=== PATIENT | female | born 1980 | race Caucasian/White ===

== ENCOUNTER 2021-08-11 13:20 | Inpatient (IN) | payer MEDICAID, SELFPAY ==
[~2021-08-11] VITALS: Ht 160 cm; Wt 76.7 kg
[2021-08-11] MEDS ORDERED: PNV91TAB8 PO (14:03)
[2021-08-11 14:52] LABS: BASOPHILS % (AUTO) 0.5 % (0.0-2.0); EOSINOPHILS # (AUTO) 0.2 K/uL (0-0.4); EOSINOPHILS % (AUTO) 1.7 % (0.0-4.0); HEMATOCRIT 33.8 % (36-48); HEMOGLOBIN 11.6 g/dL (12.0-16.0); LYMPHOCYTES # (AUTO) 1.4 K/uL (2.5-16.5); LYMPHOCYTES % (AUTO) 13.1 % (20.5-51.1); MEAN CORPUSCULAR HEMOGLOBIN 31 pg (27-31); MEAN CORPUSCULAR HGB CONC 34 g/dL (33-37); MEAN CORPUSCULAR VOLUME 91.2 fL (80-94); MONOCYTES # (AUTO) 0.6 K/uL (0.8-1.0); MONOCYTES % (AUTO) 5.4 % (1.7-9.3); NEUTROPHILS # (AUTO) 8.2 K/uL (1.8-7.7); NEUTROPHILS % (AUTO) 79.3 % (42.2-75.2); PLATELET COUNT (AUTO) 190 K/uL (140-450); RED BLOOD CELL COUNT(AUTO) 3.71 MIL/uL (4.20-5.40); RED CELL DISTRIBUTION WIDTH 13.5 % (11.6-13.7); WHITE BLOOD COUNT (AUTO) 10.3 K/uL (4.8-10.8)
[2021-08-11] MEDS: LACTATED RINGERS 1,000 ML IV SCH ×3 (15:00→17:46)
[2021-08-11 15:04] LABS: APPEARANCE,URINE CLEAR (CLEAR); BILIRUBIN,URINE NEGATIVE (NEGATIVE); BLOOD, URINE NEGATIVE (NEGATIVE); COLOR,URINE YELLOW (YELLOW); LEUKOCYTE ESTERASE ,URINE NEGATIVE (NEGATIVE); NITRITE, URINE NEGATIVE (NEGATIVE); PH,URINE 6.5 (5.0-9.0); UGLUCOSE NEGATIVE (NEGATIVE)
[2021-08-11 15:12] LABS: ALBUMIN 2.8 g/dL (3.4-5.0); ANION GAP 13.6 (8-16); CARBON DIOXIDE 25.3 mmol/L (21-32); CREATININE 0.4 mg/dL (0.6-1.3); TOTAL BILIRUBIN 0.8 mg/dL (0.0-1.0)
[2021-08-11 15:15] LABS: POTASSIUM 2.9 mmol/L (3.5-5.1)
[2021-08-11 16:29] VITALS: BP 146/69
[2021-08-11] MEDS ORDERED: KCL 20 MEQ/WATER INJ PREMIX 200 ML IV ONE (17:05)
[2021-08-12 01:04] LABS: ALBUMIN 2.7 g/dL (3.4-5.0); ANION GAP 14.7 (8-16); CARBON DIOXIDE 24.5 mmol/L (21-32); CREATININE 0.4 mg/dL (0.6-1.3); POTASSIUM 3.2 mmol/L (3.5-5.1); TOTAL BILIRUBIN 0.9 mg/dL (0.0-1.0)
[2021-08-12] MEDS: LACTATED RINGERS 1,000 ML IV SCH ×3 (04:11→14:58)
[2021-08-12] MEDS ORDERED: KCL 20 MEQ/WATER INJ PREMIX 100 ML IV SCH (07:00)
--- NOTE | 2021-08-12 08:22 | NUR ---
PATIENT HAS BEEN SCREENED AND CATEGORIZED LOW NUTRITION RISK. PATIENT WILL BE SEEN WITHIN 7 DAYS OF ADMISSION. 08/18/[address]
[2021-08-12] MEDS ORDERED: MORPHINE PRES FREE 10 MG/10 ML AMP IV ONE (13:09)
[2021-08-12] MEDS ORDERED: METOCLOPRAMIDE 10 MG/2 ML INJ VIAL ONE (13:15)
[2021-08-12] MEDS ORDERED: ONDANSETRON 4 MG/2 ML VIAL ONE (13:15)
[2021-08-12] MEDS ORDERED: DEXAMETHASONE 4 MG/ML VIAL ONE (13:15)
[2021-08-12] MEDS ORDERED: METHYLERGONOVINE 0.2 MG/ML AMP ONE (13:32)
[2021-08-12] MEDS ORDERED: ONDANSETRON 4 MG/2 ML VIAL IVP PRN (18:20)
[2021-08-12] MEDS ORDERED: NALOXONE 0.4 MG/ML VIAL IVP PRN (18:20)
[2021-08-13] MEDS: LACTATED RINGERS 1,000 ML IV SCH (00:44)
[2021-08-13 08:26] LABS: BASOPHILS % (AUTO) 0.1 % (0.0-2.0); HEMATOCRIT 32.4 % (36-48); HEMOGLOBIN 11.1 g/dL (12.0-16.0); LYMPHOCYTES # (AUTO) 0.9 K/uL (2.5-16.5); LYMPHOCYTES % (AUTO) 5.5 % (20.5-51.1); MEAN CORPUSCULAR HEMOGLOBIN 31 pg (27-31); MEAN CORPUSCULAR HGB CONC 34 g/dL (33-37); MEAN CORPUSCULAR VOLUME 91.4 fL (80-94); MONOCYTES # (AUTO) 0.7 K/uL (0.8-1.0); MONOCYTES % (AUTO) 4.2 % (1.7-9.3); NEUTROPHILS # (AUTO) 15.3 K/uL (1.8-7.7); NEUTROPHILS % (AUTO) 90.2 % (42.2-75.2); PLATELET COUNT (AUTO) 187 K/uL (140-450); RED BLOOD CELL COUNT(AUTO) 3.55 MIL/uL (4.20-5.40); RED CELL DISTRIBUTION WIDTH 13.5 % (11.6-13.7); WHITE BLOOD COUNT (AUTO) 16.9 K/uL (4.8-10.8)
[2021-08-13] MEDS ORDERED: OXYTOCIN 20 UNITS/LR PREMIX 0 ML IV ONE (09:07)
[2021-08-13] MEDS ORDERED: oxyCODONE/APAP 5/325 MG 1 TAB TAB PO PRN ×2 (10:50)
[2021-08-13] MEDS: IBUPROFEN 800 MG TAB PO SCH ×2 (17:09→23:15)
[2021-08-14] MEDS ORDERED: CAMERA MC ONE (03:29)
[2021-08-14] MEDS: IBUPROFEN 800 MG TAB PO SCH ×2 (05:29→12:02)
== END 2021-08-14 15:00 | disposition home or self-care (01) | DRG 540 ==
LOC: MLD 13:20 → MFCC 08-12 14:06
PROVIDERS: ADMIT Obstetrics & Gynecology; ATTEND Obstetrics & Gynecology
PROC: 10D00Z1 Extraction of Products of Conception, Low, Open Approach (ICD-10-PCS; principal; 2021-08-12 12:00)
DX: O34.211 Maternal care for low transverse scar from previous cesarean delivery (principal); D62 Acute posthemorrhagic anemia; O99.284 Endocrine, nutritional and metabolic diseases complicating childbirth; E87.6 Hypokalemia; Z20.822 Contact with and (suspected) exposure to COVID-19; O13.4 Gestational [pregnancy-induced] hypertension without significant proteinuria, complicating childbirth; O99.02 Anemia complicating childbirth; Z37.0 Single live birth; Z3A.37 37 weeks gestation of pregnancy
CPT/HCPCS: 36415; 51702; 80053; 81003; 85025; 86592; 86886; 86900; 86901; J0690; J1100; J2210; J2270; J2405; J2590; J2765; J3480; J7060